=== PATIENT | male | born 1975 | race African-American/Black ===

== ENCOUNTER 2016-05-03 16:50 | Emergency (ER) | payer SELFPAY ==
[2016-05-03 16:50] VITALS: BMI 36.2
[2016-05-03 16:58] VITALS: TEMP 97.9
[2016-05-03] MEDS ORDERED: HYDROmorphone 1 MG INJECTION IV ONE ×2 (18:25→19:54)
[2016-05-03] MEDS ORDERED: NS 1,000 ML IV ONE (18:25)
[2016-05-03] MEDS ORDERED: ONDANSETRON HCL 4 MG ODT TAB PO ONE (18:25)
--- NOTE | 2016-05-03 18:51 | DIRPT ---
CLINICAL DATA: 41-year-old male Male with cough congestion and body ache for 1 week. Initial encounter. EXAM: CHEST 2 VIEW COMPARISON: 03/08/2016 and earlier. FINDINGS: Lung volumes are stable and within normal limits. Normal cardiac size and mediastinal contours. Visualized tracheal air column is within normal limits. Lungs are clear. No pneumothorax or pleural effusion. Stable cholecystectomy clips. No osseous abnormality identified. IMPRESSION: Negative, no acute cardiopulmonary abnormality. Electronically Signed By: Enoch Urias M.D. On: 05/03/2016 18:48
[2016-05-03 18:58] LABS: AUTOMATED BASOPHIL 1.7 % (0-2); AUTOMATED EOSINOPHIL 1.3 % (0-5); AUTOMATED LYMPH 19.4 % (17-44); AUTOMATED MONOCYTE 10.6 % (3-10); MPV 7.3 fL (7.4-10.4)
[2016-05-03 19:18] LABS: BLOOD UREA NITROGEN 11 MG/DL (9-20); CALCIUM 9.4 MG/DL (8.4-10.2); CALCULATED OSMOLALITY 275 MOs/Kg (270-290); CHLORIDE 106 mEq/L (98-107); GLUCOSE 147 MG/DL (70-99); SODIUM LEVEL 142 mEq/L (137-146); TOTAL PROTEIN 7.2 G/DL (6.3-8.2)
--- NOTE | 2016-05-03 19:24 | DIRPT ---
CLINICAL DATA: Abdominal pain with nausea, vomiting common diarrhea for 1 week EXAM: CT ABDOMEN AND PELVIS WITHOUT CONTRAST TECHNIQUE: Multidetector CT imaging of the abdomen and pelvis was performed following the standard protocol without IV contrast. COMPARISON: 03/08/2016 FINDINGS: Lower chest and abdominal wall: Injection granulomas in the bilateral gluteal fat. Hepatobiliary: No focal liver abnormality.Cholecystectomy with normal common bile duct diameter. Pancreas: Unremarkable. Spleen: Unremarkable. Adrenals/Urinary Tract: Negative adrenals. No hydronephrosis or stone. Unremarkable bladder. Reproductive:No pathologic findings. Stomach/Bowel: No obstruction. No appendicitis. Vascular/Lymphatic: No acute vascular abnormality. No mass or adenopathy. Peritoneal: No ascites or pneumoperitoneum. Musculoskeletal: No acute abnormalities. IMPRESSION: Negative. No explanation for symptoms. Electronically Signed By: Mayur Mccollum M.D. On: 05/03/2016 19:21
--- NOTE | 2016-05-03 20:05 | EDPRACDOC ---
- General Information Chief Complaint: Flu-Like Symptoms Stated Complaint: VOMITING AND MULTIPLE SYMPTOMS Time Seen by Provider: 05/03/16 18:08 Information Source: Patient Mode Of Arrival: Car Home Medications: Home Medications Albuterol Sulfate [Proair Hfa] 2 puff INH Q4-6H PRN 12/30/15 Alprazolam [Xanax] 1 mg PO Q8H PRN 12/30/15 Amlodipine [Norvasc] 5 mg PO DAILY 12/30/15 Epinephrine [Epipen] 0.3 mg IM DIR PRN 12/30/15 Furosemide [Lasix] 20 mg PO DAILY 12/30/15 Olanzapine [Zyprexa] 10 mg PO DAILY 12/30/15 Oxycodone HCl [Oxycodone Immediate Release] 10 mg PO Q8H PRN 12/30/15 Unk Antipsychotic 0 mg PO .SEE COMMENTS 03/08/16 Amoxicillin/Clavulanate Potas. [Augmentin] 875 mg PO BID #20 tab 05/03/16 Fluticasone Propionate [Flonase] 1 - 2 spray JATIN DAILY 05/03/16 Metformin HCl 500 mg PO DAILY 05/03/16 Ondansetron [Zofran Odt] 4 mg PO Q6H PRN #20 tab.rapdis 05/03/16 Oxycodone Immediate Release [Oxycodone Immediate Release (OxyIR)] 5 mg PO Q6H PRN #20 tab 05/03/16 Unknown Depression Meds 0 mg PO .SEE COMMENTS 05/03/16 Allergies/Adverse Reactions: Allergies Allergy/AdvReac Type Severity Reaction Status Date / Time morphine Allergy Intermediate Anaphylaxis Verified 05/03/16 16:57 * acetaminophen [From Tylenol] Allergy See Verified 05/03/16 16:57 Comments IV dye Allergy Nausea/Vomi Uncoded 05/03/16 16:57 ting - History of Present Illness Onset: 1 WEEK HPI: PT PRESENTS WITH MULTIPLE COMPLAINTS. STATES BILATERAL EAR PAIN, FACIAL PAIN AND PRESSURE, VOMITING AND LOWER ABDOMINAL PAIN. PT STATES THESE SYMPTOMS HAVE BEEN ONGOING FOR SEVERAL DAYS. Shortness of Breath: None Relevant History of: Reports: None Cough: Reports: Non-productive Rhinorrhea: Reports: Clear Fever Severity/Quality: Reports: subjective Ear Symptoms: Reports: Earache Recently treated infections: Denies: Otitis media, Pneumonia, URI Associated Signs & Symptoms: Reports: Vomiting Oral Intake: Decreased Urinary Output: Normal ED Past Medical History - History Reviewed Yes Nurses notes reviewed and agree except as marked - Patient Medical History Cardiac History: Reports: Hypertension Respiratory History: Reports: Asthma, COPD Psychological History: Reports: Depression Systemic History: Reports: Cancer (PITUITARY TUMORS), Diabetes (borderline) Additional Past Medical History: CHRONIC PAIN Surgical History: Reports: Cholecystectomy, Other (BACK SURGERY, PITUITARY TUMOR REMOVAL) - Family Medical History Reports: Hypertension - Social Medical History Smoking Status: Heavy tobacco smoker (5 or more cigarettes/day or daily pipe/ cigar) EDM Review of Systems - Review of Systems ROS Negative Except as Marked: Yes All systems reviewed and were negative except as marked - Physical Exam Constitutional: Alert (PT APPEARS UNCOMFORTABLE) Oriented to: Time, Person, Place Last recorded Vital Signs: Last Vital Signs Temp 97.9 F 05/03/16 16:56 Pulse 90 05/03/16 18:38 Resp 18 05/03/16 18:38 BP 142/71 05/03/16 18:38 Pulse Ox 93 05/03/16 18:38 Oxygen Pulse Oxygen Saturation 93 O2 Device Room Air Oxygen Flow Rate Fraction of Inspired Oxygen ( FIO2) - HEENT Head: Normal ( normocephalic) Eye Exam: Normal (PERRL, EOMI, Sclera white) Oropharynx: Normal (Pharynx:Moist without exudate,Gums-no swelling) Tympanic Membrane: Bulging, Dull, Redness, Retracted Nose: No Symptoms Reported (septum midline) Neck: Normal (FROM, trachea at midline) HEENT Comment: PAIN WITH PALPATION TO FRONTAL SINUS. LEFT WORSE THAN RIGHT - Respiratory/Cardiovascular Respiratory: Normal - CTA (BBS clear to auscultation without adventitious sounds ) Cardiovascular: Normal (RRR without murmur, gallop or rub) - GI Auscultation: Normal (NABS) Palpation: Normal (Soft,No rebound or guarding, non distended) Tenderness: Non tender Jimenez's Sign: Negative Rectal Exam: Deferred - Musculoskeletal Back: Normal (Non-Tender) Extremities: Normal (Normal tone, Pulses 2+ No cyanosis or edema, FROM) - Integumentary Skin: Normal, Warm, Dry Lymphatics: Normal (no adenopathy) - Neurologic Memory Impaired: Normal Motor Function: Normal (Normal tone, Pulses 2+ No cyanosis or edema, FROM) Cranial Nerve: Normal (CN II-X11 intact sensation, strength 5/5) Cerebellar: Normal Mood Description: Normal Perception: Normal - Differential Diagnosis Otitis Media, Sinusitis - Results 05/03/16 18:40 05/03/16 18:40 WBC 10.6 xk/uL (3.8-10.8) 05/03/16 18:40 RBC 5.82 xM/uL (4.70-6.10) 05/03/16 18:40 Hgb 16.7 g/dL (14.0-18.0) 05/03/16 18:40 Hct 48.6 % (42-52) 05/03/16 18:40 MCV 84 fL (80-94) 05/03/16 18:40 MCH 28.7 pg (27-32) 05/03/16 18:40 MCHC 34.4 g/dl (33-36) 05/03/16 18:40 RDW 13.0 % (11.5-14.5) 05/03/16 18:40 Plt Count 334 xk/uL (130-400) 05/03/16 18:40 MPV 7.3 fL (7.4-10.4) L 05/03/16 18:40 Neut % (Auto) 67.0 % (45-76) 05/03/16 18:40 Lymph % (Auto) 19.4 % (17-44) 05/03/16 18:40 [place] % (Auto) 10.6 % (3-10) H 05/03/16 18:40 Eos % (Auto) 1.3 % (0-5) 05/03/16 18:40 Baso % (Auto) 1.7 % (0-2) 05/03/16 18:40 Absolute Neuts (auto) 7.10 xk/uL (1.7-8.2) 05/03/16 18:40 Absolute Lymphs (auto) 2.01 xk/uL (0.65-4.75) 05/03/16 18:40 Sodium 142 mEq/L (137-146) 05/03/16 18:40 Potassium 4.1 mEq/L (3.5-5.1) 05/03/16 18:40 Chloride 106 mEq/L (98-107) 05/03/16 18:40 Carbon Dioxide 24 mMOL/L (22-33) 05/03/16 18:40 Anion Gap 16 mEq/L (8-16) 05/03/16 18:40 BUN 11 MG/DL (9-20) 05/03/16 18:40 Creatinine 0.80 MG/DL (0.66-1.25) 05/03/16 18:40 Estimated GFR (MDRD) > 60 mL/min (>=60) 05/03/16 18:40 Glucose 147 MG/DL (70-99) H 05/03/16 18:40 Calculated Osmolality 275 MOs/Kg (270-290) 05/03/16 18:40 Calcium 9.4 MG/DL (8.4-10.2) 05/03/16 18:40 Total Bilirubin 0.5 MG/DL (0.2-1.3) 05/03/16 18:40 AST 26 IU/L (17-59) 05/03/16 18:40 ALT 49 IU/L (21-72) 05/03/16 18:40 Alkaline Phosphatase 81 IU/L (38-126) 05/03/16 18:40 Total Protein 7.2 G/DL (6.3-8.2) 05/03/16 18:40 Albumin 4.1 G/DL (3.5-5.0) 05/03/16 18:40 Lab Results 05/03/16 05/03/16 18:40 18:40 WBC 10.6 RBC 5.82 Hgb 16.7 Hct 48.6 MCV 84 MCH 28.7 MCHC 34.4 RDW 13.0 Plt Count 334 MPV 7.3 L Neut % (Auto) 67.0 Lymph % (Auto) 19.4 [place] % (Auto) 10.6 H Eos % (Auto) 1.3 Baso % (Auto) 1.7 Absolute Neuts (auto) 7.10 Absolute Lymphs (auto) 2.01 Sodium 142 Potassium 4.1 Chloride 106 Carbon Dioxide 24 Anion Gap 16 BUN 11 Creatinine 0.80 Estimated GFR (MDRD) > 60 Glucose 147 H Calculated Osmolality 275 Calcium 9.4 Total Bilirubin 0.5 AST 26 ALT 49 Alkaline Phosphatase 81 Total Protein 7.2 Albumin 4.1 Decision Time to Discharge: 20:07 - Departure Disposition: Home Condition: Stable Final Diagnosis: Otitis media Qualifiers: Otitis media type: unspecified Laterality: bilateral Chronicity: unspecified Qualified Code(s): H66.93 - Otitis media, unspecified, bilateral Sinusitis Qualifiers: Sinusitis location: frontal Chronicity: acute Recurrence: recurrent Qualified Code(s): J01.11 - Acute recurrent frontal sinusitis Instructions: Otitis Media (ED), Sinusitis (ED) Education/Counseling Given To: Patient Education/Counseling Given Regarding: Diagnosis, Treatment, Prognosis, Follow Up Referrals: Naeem Jackson MD [Primary Care Provider] - One Week Prescriptions: Amoxicillin/Clavulanate Potas. [Augmentin] 875 mg PO BID #20 tab Ondansetron [Zofran Odt] 4 mg PO Q6H PRN #20 tab.rapdis PRN Reason: Nausea/Vomiting Oxycodone Immediate Release [Oxycodone Immediate Release (OxyIR)] 5 mg PO Q6H PRN #20 tab PRN Reason: Pain Additional Instructions: INCREASE FLUID INTAKE. FOLLOW UP WITH PRIMARY CARE PROVIDER NEXT WEEK. TAKE ALL ANTIBIOTICS PRESCRIBED. RETURN TO THE ED FOR WORSENING SYMPTOMS OR CONCERNS.
[2016-05-03 20:14] LABS: RBC/URINE 0-2 (0-2); WBC/URINE 0-2 (0-2)
[2016-05-03 20:15] LABS: LEUKOCYTES/URINE NEG (NEGATIVE); NITRITE/URINE NEG (NEGATIVE); URINE OCCULT BLOOD NEG (NEG/TRACE)
[2016-05-03 20:30] VITALS: BP 126/65; PULSE 97
== END 2016-05-03 20:27 | disposition home or self-care (01) ==
LOC: ED 16:50
DX: H66.93 Otitis media, unspecified, bilateral (principal); J01.11 Acute recurrent frontal sinusitis
CPT/HCPCS: 36415; 71020; 74176; 80053; 81001; 85025; 93005; 96361; 96374; 96376; 99284; J1170; J3490